=== PATIENT | male | born 1950 | race Caucasian/White ===

== ENCOUNTER 2025-04-18 18:28 | Emergency (ER) | payer OTHER, SELFPAY ==
[2025-04-18 18:30] VITALS: BP 151/70
--- NOTE | 2025-04-18 22:00 | ED.GENMED ---
History of Present Illness
General
Chief Complaint: Back Pain
Source: patient
Time Seen by Provider: 04/18/25 21:52
History of Present Illness
History of Present Illness:
75-year-old male with past medical history of hypertension and high cholesterol presenting to the emergency department for exacerbation of chronic back pain stating that he was in the process of loading his truck back up to move back home to [place]
when he put the last bag on the truck bed and he felt a sudden pain in his lower back, constant spasms, unable to sit still other than when laying flat. Patient states that he has a history of chronic back pain and goes for nerve blocks every 6
months and he is due for this nerve block on April 26. 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 Patient did not take anything for pain prior to arrival because states he did not have anything. He denies any
fevers or infectious symptoms, bladder or bowel incontinence, saddle anesthesias, focal weakness or numbness, traumatic injuries or any other concerns. He does believe that he may have overdone it while he was packing and moving heavier objects.
Past History
Past History
ED Past Medical History: HTN and Hypercholesterolemia
ED Past Surgical History: Orthopedic
Social History
Tobacco: Non-smoker
Alcohol: None
Drug: None
Personal:
Living: with family
Review of Systems
Review of Systems
All Other Systems: ROS reviewed and negative except as documented in HPI and ROS
Phy Exam
Physical Exam
Physical Exam:
GENERAL: Alert , in no apparent distress
EYE: conjunctiva clear
Head: Normocephalic atraumatic
NECK: Supple,
ENT: mmm.
LUNGS: no acute respiratory distress
BACK: Pain with any attempted ROM, tenderness in left paralumbar region, no rashes
NEUROLOGICAL: Alert and oriented
SKIN: Warm and dry, skin intact. no rashes
MUSCULOSKELETAL: well perfused. EHL intact b/l, sensation grossly intact to light touch
PSYCH: Normal and appropriate interaction.
Scores
Heart Failure Risk
Heart Failure Risk Score: Not Applicable
Heart Score for Chest Pain Patients
STEMI patient?: Not applicable
Withdrawal Assessment of Alcohol
Withdrawal Assessment Completed?: Not applicable
Course
Orders/Labs/Results
Orders:
Orders
04/18/25 21:59
Dexamethasone Sod Phosphate [Decadron] 10 mg IM NOW STA
Diazepam [Valium] 5 mg PO NOW STA
Ibuprofen [Motrin] 600 mg PO NOW STA
Lidocaine [Lidocaine 4% Patch] 1 patch TOPICAL NOW STA
Apply Lidocaine patch(s) to:: left lower back
Vital Signs
Initial and Last Documented VS:
Initial Vital Signs
Temp Pulse Resp BP Pulse Ox
98.0 F 72 18 151/70 99
04/18/25 18:30 04/18/25 18:30 04/18/25 18:30 04/18/25 18:30 04/18/25 18:30
Last Documented Vital Signs
Temp Pulse Resp BP Pulse Ox
98.0 F 72 18 151/70 99
04/18/25 18:30 04/18/25 18:30 04/18/25 18:30 04/18/25 18:30 04/18/25 22:00
MDM/Problems Addressed
Differential Diagnosis Includes:
Lumbar strain
Disc Herniation
Nerve impingement
Sciatica
Spinal Stenosis
Less concern for fracture or infectious etiology
MDM/Problems Addressed:
75-year-old male presenting to the ER for evaluation of acute on chronic back pain, did not take anything for pain prior to arrival. Currently in process of moving back to [place] where he usually gets his medical care as well as pain management.
Patient does appear comfortable when laying still but appears in pain with any attempted movements. Will treat pain with anti-inflammatories, steroid, muscle relaxant and topical agents. Stable for discharge home, aware of return precautions.
Follow-up with pain management.
*Pulse Oximetry
SaO2: 99
Oxygen Mode of Delivery: Room air
Patient hypoxic: no
*Critical Care Note
Total Time (30-74mins, 75-104mins- exclusive of procedures): Not Applicable
ED Attending Note
-
Portions of this chart may have been created with voice recognition software.� Occasional wrong word or��sound alike� substitutions may have occurred due to the inherent limitations of voice recognition software.
Discharge Plan
Departure
Patient Disposition: Home (Routine Discharge)
Date of Disposition: 04/18/25
Time of Disposition: 22:00
Patient with high blood pressure during this ER visit?: Yes
Discharge Problem:
Low back pain
Instructions: Low Back Pain (DC)
Prescriptions:
New
methylprednisolone [Medrol (Anupam)] 4 mg tablets,dose pack
4 mg PO DIRECTED Qty: 21 0RF
diazepam [Valium] 5 mg tablet
5 mg PO BID PRN (Reason: muscle spasm) Qty: 10 0RF
Referrals:
UNKNOWN - PT DOES,NOT KNOW [Family Provider]
Activity Restrictions/Additional Instructions:
Please do not take the valium while driving
Interventions
Interventions:
*Risk Screen - Suicide Last Done: 04/18/25 19:56
*General Assessment Last Done: 04/18/25 18:30
*Neglect/Abuse Screening Last Done: 04/18/25 19:56
*ED- Fall Risk Assessment Last Done: 04/18/25 19:56
*ED COVID-19 Vaccine History Last Done: 04/18/25 19:56
ED-Musculoskeletal Assessment Last Done: 04/18/25 19:56
Discharge Date and Time
Print Language: MALAYSIAN
[2025-04-18] MEDS: VALIUM 5 MG PO (22:07)
[2025-04-18] MEDS: DECADRON 10 MG IM (22:07)
[2025-04-18] MEDS: LIDOCAINE 4% PATCH 1 PATCH TOPICAL (22:07)
[2025-04-18] MEDS: MOTRIN 600 MG PO (22:07)
== END 2025-04-18 22:43 | disposition home or self-care (01) ==
LOC: EMR 18:28
PROVIDERS: EMERGENCY PHYSICIAN Emergency Medicine
DX: M54.50 Low back pain, unspecified (principal); G89.29 Other chronic pain; R03.0 Elevated blood-pressure reading, without diagnosis of hypertension; I10 Essential (primary) hypertension; E78.00 Pure hypercholesterolemia, unspecified
CPT/HCPCS: 99284; 96372